=== PATIENT | female | born 1990 | race American Indian/Alaskan Native ===

== ENCOUNTER 2018-10-14 21:08 | Emergency (ER) | payer OTHER | END 2018-10-15 00:29 | disposition home or self-care (01) | LOC: C.ER 21:08 ==

== ENCOUNTER 2018-10-21 08:42 | Outpatient (CLI) | payer OTHER | END 2018-10-21 08:43 | disposition home or self-care (01) | LOC: C.LAB 08:42 | DX: R23.8 Other skin changes (principal) ==

== ENCOUNTER 2018-10-30 20:38 | Emergency (ER) | payer OTHER ==
[2018-10-30] MEDS ORDERED: Sodium Chloride 0.9% 1,000 ML IV ONE (21:00)
--- NOTE | 2018-10-30 21:00 | C.PDOC ---
History Of Present Illness Patient with hx of dermoid cysts presents again with rlq abdominal pain. No f/c/ some nausea no vomiting in the ed/ Sharp stabbing discomfort. Tolerating po. was treated for gonorrhea Time Seen by Provider: 10/30/18 20:59 Chief Complaint (Nursing): Abdominal Pain History Per: Patient History/Exam Limitations: no limitations Onset/Duration Of Symptoms: Days Current Symptoms Are (Timing): Still Present Context: Other Severity: Moderate Pain Scale Rating Of: 5 Location Of Pain/Discomfort: RLQ Radiation Of Pain To:: None Quality Of Discomfort: Sharp, Aching Associated Symptoms: Nausea. denies: Fever, Chills, Vomiting Exacerbating Factors: Movement Alleviating Factors: None Last Bowel Movement: Today Recent travel outside of the [place]: No Additional History Per: Patient Abnormal Vaginal Bleeding: No Past Medical History Reviewed: Historical Data, Nursing Documentation, Vital Signs Vital Signs: Last Vital Signs Temp 98.9 F 10/30/18 20:51 Pulse 78 10/30/18 20:51 Resp 18 10/30/18 20:51 BP 127/80 10/30/18 20:51 Pulse Ox 95 10/30/18 20:51 Primary Care Provider: Aide Pérez - Medical History PMH: Sexually Transmitted Disease Denies: Chronic Kidney Disease Family History: States: No Known Family Hx - Social History Hx Alcohol Use: No Hx Substance Use: Yes (MARIJUANA) - Immunization History Hx Tetanus Toxoid Vaccination: No Hx Influenza Vaccination: No Hx Pneumococcal Vaccination: No Review Of Systems Constitutional: Negative for: Fever, Chills Cardiovascular: Negative for: Chest Pain Respiratory: Negative for: Shortness of Breath Gastrointestinal: Positive for: Nausea, Vomiting, Abdominal Pain Genitourinary: Negative for: Hematuria Musculoskeletal: Negative for: Back Pain Skin: Negative for: Rash Neurological: Negative for: Weakness Psych: Negative for: Anxiety Physical Exam - Physical Exam Appears: Non-toxic Skin: Warm, Dry Oral Mucosa: Moist Chest: Symmetrical Cardiovascular: Rhythm Regular Respiratory: No Rales, No Rhonchi, No Wheezing Gastrointestinal/Abdominal: Soft, Tenderness, No Distention, No Guarding, No Rebound Back: No CVA Tenderness Extremity: No Tenderness Extremity: Bilateral: Atraumatic Pulses: Left Dorsalis Pedis: Normal, Right Dorsalis Pedis: Normal Neurological/Psych: Oriented x3, Normal Speech Gait: Steady ED Course And Treatment - Laboratory Results Result Diagrams: 10/30/18 21:28 10/30/18 21:28 O2 Sat by Pulse Oximetry: 95 Pulse Ox Interpretation: Normal - CT Scan/US CT abd/pelvis Other Rad Studies (CT/US): Read By Radiologist, Radiology Report Reviewed CT/US Interpretation: XAM: CT Abdomen and Pelvis with IV contrast. CLINICAL HISTORY: Right lower abd pain,ho dermoid cyste. TECHNIQUE: Axial computed tomography images of the abdomen and pelvis with intravenous contrast. 0.00 mGy-cm. CONTRAST: With; 100ml visi. COMPARISON: Comparison is made to previous TV pelvic ultrasound dated 10/14/2018. FINDINGS: LUNG BASES: The lung bases appear clear. No pleural effusions are seen. LIVER: Unremarkable. GAL LBLADDER AND BILE DUCTS: The gallbladder appears within normal limits. No radioopaque gallstones are seen. No biliary ductal dilatation is evident. PANCREAS: Unremarkable. SPLEEN: Unremarkable. ADRENAL GLANDS: Unremarkable. KIDNEYS, URETERS, AND BLADDER: The kidneys appear within normal limits. There is no hydronephrosis or hydroureter. No urinary calculi are seen. The urinary bladder is completely decompressed. STOMACH AND BOWEL: Unremarkable appearance of the stomach and bowel. No evidence of bowel obstruction. There is mucosal wall thickening of the jejunum noted with fluid in the lumen thought compatible with jejunitis. Infectious or inflammatory etiologies are thought most likely. No evidence suggesting colitis. APPENDIX: No definite evidence of acute appendicitis on CT examination. PERITONEUM: No free fluid. No free air. LYMPH NODES: No lymphadenopathy is evident. REPRODUCTIVE: A 3.8 x 3.3 cm heterogeneous collection is seen in the left adnexal region with a fluid-debris and low-level thought compatible with a dermoid cyst. This finding corresponds with the prior TV pelvic ultrasound findings. The questioned right adnexal dermoid cyst is not identified; likely obscured by bowel. VASCULATURE: No evidence of abdominal aortic aneurysm. BONES: No aggressive appearing osseous lesion. No acute osseous pathology evident. IMPRESSION: 1. Evidence of je junitis. 2. A 3.8 x 3.3 cm left adnexal dermoid cyst is identified. This corresponds with the prior TV pelvic ultrasound findings. 3. The right adnexal dermoid cyst identified on prior TV pelvic ultrasound was not detected. . Electronically signed on October 31, 2018 12:12:26 AM EDT by: Cuhckie Linder M.D., Certified by ABR, MSK, Neuroradiology. Reevaluation Time: 00:19 Reassessment Condition: Improved Medical Decision Making Medical Decision Making: Upon provider reevaluation patient is feeling better, is medically stable, and requires no further treatment in the ED at this time. Patient will be discharged home with Rx for tramadol . Counseling was provided and all questions were answ ered regarding diagnosis and need for follow up with the referred clinic. There is agreement to discharge plan. Return if symptoms persist or worsen. Disposition Counseled Patient/Family Regarding: Studies Performed, Diagnosis, Need For Followup, Rx Given - Disposition Referrals: [facility] [Outside] [facility] [Outside] Disposition: HOME/ ROUTINE Disposition Time: 21:00 Condition: FAIR Additional Instructions: Please follow up with your on/program advocate Prescriptions: traMADol [Ultram] 50 mg PO TID PRN #15 tab PRN Reason: Pain, Severe (8-10) Instructions: Acute Abdomen (Belly Pain), Adult (DC), Chronic Pelvic Pain (DC) Forms: A.P Avanashiappa Silk ([place]) - Clinical Impression Clinical Impression: Dermoid cyst, Abdominal pain
[2018-10-30] MEDS ORDERED: Sodium Chloride 0.9% 1,000 ML ONE (21:26)
[2018-10-30 21:35] LABS: BASO % 0.7 % (0.0-2.0); EOS # 0.1 K/uL (0.0-0.7); EOS % 1.3 % (0.0-4.0); HEMOGLOBIN 13.3 g/dL (11.0-16.0); LYMPH # 2.2 K/uL (1.0-4.3); LYMPH % 36.1 % (20.0-40.0); MEAN CELL VOLUME 86.3 fL (81.0-99.0); MEAN CORPUSCULAR HEMOGLOBIN 29.4 pg (27.0-31.0); MEAN CORPUSCULAR HGB CONC 34.1 g/dL (33.0-37.0); MEAN PLATELET VOLUME 8.5 fL (7.2-11.7); MONO # 0.5 K/uL (0.0-0.8); MONO % 7.7 % (0.0-10.0); NEUT # 3.2 K/uL (1.8-7.0); NEUT % 54.2 % (50.0-75.0); NRBC % 0.1 % (0.0-2.0); RBC 4.53 Mil/uL (3.80-5.20); RED CELL DISTRIBUTION WIDTH 13.2 % (11.5-14.5)
[2018-10-30 21:41] LABS: HCG,QUALITATIVE URINE NEGATIVE (NEGATIVE)
[2018-10-30 21:43] LABS: SQUAMOUS EPITHIAL 2 /hpf (0-5); URINE BACTERIA RARE (<OCC); URINE BILIRUBIN NEGATIVE (NEGATIVE); URINE BLOOD NEGATIVE (NEGATIVE); URINE CLARITY Clear (Clear); URINE COLOR Yellow (YELLOW); URINE GLUCOSE (UA) NORMAL (Normal); URINE LEUKOCYTE ESTERASE NEG Leu/uL (Negative); URINE PROTEIN NEGATIVE (NEGATIVE); URINE UROBILINOGEN NORMAL mg/dL (0.2-1.0)
[2018-10-30 21:48] LABS: INR 1.1; PROTHROMBIN TIME 11.7 SECONDS (9.7-12.2)
[2018-10-30 21:50] LABS: ALBUMIN 4.3 g/dL (3.5-5.0); ALT/SGPT 35 U/L (9-52); AST/SGOT 39 U/L (14-36); BLOOD UREA NITROGEN 10 mg/dL (7-17); CALCIUM 9.5 mg/dl (8.6-10.4); GFR NON-AFRICAN AMERICAN > 60; LIPASE 72 U/L (23-300)
[2018-10-30] MEDS ORDERED: cefTRIAXone IV 1 gm in Dextros 50 ML IVPB ONE (22:00)
[2018-10-30] MEDS ORDERED: Iodixanol 320 MG/ML 100 ML BOTTLE IV ONE (23:02)
[2018-10-31 00:36] VITALS: BP 116/80; PULSE 89; RESP 20; TEMP 97.9; O2SAT 99
--- NOTE | 2018-10-31 08:43 | CT ---
Date of service: 10/30/2018 PROCEDURE: CT Abdomen and Pelvis with contrast HISTORY: Right lower quadrant abd pain, hx of dermoid cysts Negative test (concurrent with this examination). COMPARISON: 10/14/2018 pelvic ultrasound. Summary of findings on the comparison examination: Echogenic lesions in both adnexa likely represent dermoid cyst/teratoma larger on the left. TECHNIQUE: Intravenous contrast dose: 100 cc Visipaque [id number]. Radiation dose: Total exam DLP = <inf_radiation_dlp> mGy-cm. This CT exam was performed using one or more of the following dose reduction techniques: Automated exposure control, adjustment of the mA and/or kV according to patient size, and/or use of iterative reconstruction technique. FINDINGS: LOWER THORAX: Unremarkable. LIVER: Unremarkable. No gross lesion or ductal dilatation. GALLBLADDER AND BILE DUCTS: Unremarkable. PANCREAS: Unremarkable. No gross lesion or ductal dilatation. SPLEEN: Unremarkable. ADRENALS: Unremarkable. No mass. KIDNEYS AND URETERS: Unremarkable. No hydronephrosis. No solid mass. VASCULATURE: Unremarkable. No aortic aneurysm. No atherosclerotic calcification or mural plaque present. BOWEL: Dilated loops of proximal and mid small bowel compatible with enteritis. No mechanical obstructing process detected. Unremarkable ileum, terminal ileum/ileocecal valve region. Constipation without fecal impaction or obstruction. APPENDIX: No abnormalities to suggest acute appendicitis. No right lower quadrant inflammatory processes identified. PERITONEUM: Unremarkable. No free fluid. No free air. LYMPH NODES: Unremarkable. No enlarged lymph nodes. BLADDER: Unremarkable. REPRODUCTIVE: Redemonstration left adnexal mass 2.9 x 4 cm consistent with dermoid. BONES: No acute fracture. OTHER FINDINGS: None. IMPRESSION: Enteritis/proximal small bowel. Unremarkable ileum. No mechanical obstruction. No abnormalities to suggest acute appendicitis. No right lower quadrant inflammatory processes identified. Redemonstration of left adnexal dermoid. Concordant results (preliminary interpretation) provided by [employer]. Procedure Completed: 23:17. Preliminary Report: Interpreted and electronically signed: 02:12. Final Interpretation: 08:39.
== END 2018-10-31 00:36 | disposition home or self-care (01) ==
LOC: C.ER 20:38
DX: D27.1 Benign neoplasm of left ovary (principal); R10.9 Unspecified abdominal pain
CPT/HCPCS: 74177; 80053; 81001; 83690; 84703; 85025; 85610; 85730; 96361; 96374; 96375; 99284; J0696; J1885; J2405; J7030; Q9967